=== PATIENT | female | born 1965 | race Caucasian/White ===

== ENCOUNTER 2017-12-05 03:26 | Observation (INO) | payer OTHER ==
[~2017-12-05] VITALS: Ht 162.6 cm; Wt 73.0 kg
[~2017-12-05 03:26] MED LIST: BRISDELLE7.5 M1 PO; LEVSIN-SL0.125 MG SL; MULTIVITAMINS1 EAC9 PO; NASACORT16.9 ML NASB; VALACYCLOVIR1000 MG PO; VITAMIN B-121000 MC3 PO; VITAMIN D250000 UNIT PO; ZOFRAN ODT4 M1 SL
[2017-12-05 09:20] LABS: ABSOLUTE BASOPHIL COUNT 0 /CUMM (0.0-0.2); ABSOLUTE EOSINOPHIL COUNT 0.2 /CUMM (0.0-0.7); ABSOLUTE GRANULOCYTE CT 2.1 /CUMM (1.4-6.5); ABSOLUTE LYMPH COUNT 1.8 /CUMM (1.2-3.4); ABSOLUTE MONOCYTE COUNT 0.6 /CUMM (0.10-0.60); BASOPHIL % 0.7 % (0.0-2.0); EOSINOPHIL % 4.8 % (0-5); GRANULOCYTE % 44.1 % (42.2-75.2); HEMATOCRIT 43.1 % (37-47); MEAN CORPUSCULAR HGB 29.5 PG (27.0-31.0); MEAN CORPUSCULAR HGB CONC 33.8 G/DL (33.0-37.0); MEAN CORPUSCULAR VOLUME 87.3 FL (81.0-99.0); MEAN PLATELET VOLUME 8.1 FL (7.4-10.4); PLATELET COUNT 281 /CUMM (130-400); RBC DISTRIBUTION WIDTH 13.4 % (11.5-14.5); RED BLOOD CELL CT 4.93 /CUMM (4.20-5.40); WHITE BLOOD CELL COUNT 4.8 /CUMM (4.8-10.8)
[2017-12-05 21:35] VITALS: BP 110/60
--- NOTE | 2017-12-05 22:26 | Admission Core Measures ---
Acute Coronary Syndrome (CM) ACS Core Measures Acute Coronary Syndrome Diagnosis No Congestive Heart Failure (NEW) CHF Core Measures Congestive Heart Failure Diagnosis No Cerebrovascular Accident (NEW) CVA Core Measures CVA/TIA Diagnosis No Venous Thromboembolism VTE Core Alfonzo (View Protocol) VTE Risk Factors Age>40 No Mechanical VTE Prophylaxis d/t N/A MechProphylax Ordered No VTE Pharm Prophylaxis d/t NA PharmProphylax ordered Problem List As ranked by this Provider includes Assessment & Plan 1. Hyperparathyroidism HOME MEDS Home Med List Cyanocobalamin (Vitamin B-12) 1,000 MCG TABLET 2 TAB PO DAILY SUPPLEMENT ( Reported) Ergocalciferol (Vitamin D2) (Vitamin D2) 50,000 UNIT CAPSULE 1 CAP PO Q2W SUPPLEMENT (Reported) Multiple Vitamin (Multivitamins) 1 EACH TABLET 2 TAB PO DAILY SUPPLEMENT ( Reported) Paroxetine Mesylate (Brisdelle) 7.5 MG CAPSULE 1 CAP PO QPM HOT FLASHES ( Reported) Triamcinolone Acetonide (Nasacort) 55 MCG SPRAY 1-2 SPRAY NASB DAILY PRN NASAL CONGESTION (Reported) Valacyclovir HCl (Valacyclovir) 1,000 MG TABLET 1 TAB PO DAILY ANTIVIRAL ( Reported)
--- NOTE | 2017-12-05 22:30 | PN- General Surgery ---
Subjective Subjective: Postop check: Patient comfortable, mild sore throat, no shortness of breath or difficulty breathing, able to swallow okay. Tolerating liquids, pain is controlled Objective Vital Signs and I&Os Vital Signs Date Time Temp Pulse Resp B/P B/P Pulse O2 O2 Flow FiO2 Mean Ox Delivery Rate 12/05 2134 Nasal 2.0L Cannula 12/05 2134 98.5 72 18 110/60 98 Nasal 2.0L Cannula Intake & Output 12/05 0800 12/05 0000 12/04 0812/04 0000 Intake Total Output Total Balance Patient 161 lb Weight Physical Exam: Well-developed well-nourished no apparent distress. HEENT: Atraumatic, extraocular motion intact Neck: Supple, no lymphadenopathy. Dressing clean dry and intact, trachea midline, no appreciable swelling around incision Respiratory: No respiratory distress no stridor Extremities: No edema, no calf pain Neuro: Alert and oriented x3 Psych: Mood affect normal, normal memory normal judgment. Skin: Warm and dry, no rash on exposed skin Results Last 48 Hours of Labs: Laboratory Tests 12/057 5 1915 1600 Chemistry Calcium (8.4 - 10.2 mg/dL) 10.0 Albumin (3.5 - 5.0 g/dL) 3.7 PTH Intact (18.4 - 80.1 pg/ML) 13.9 L 30.7 287.6 H 12/05 0900 Chemistry PTH Intact (18.4 - 80.1 pg/ML) 254.0 H Hematology CBC w Diff NO MAN DIFF REQ WBC (4.8 - 10.8 /CUMM) 4.8 RBC (4.20 - 5.40 /CUMM) 4.93 Hgb (12.0 - 16.0 G/DL) 14.6 Hct (37 - 47 %) 43.1 MCV (81.0 - 99.0 FL) 87.3 MCH (27.0 - 31.0 PG) 29.5 MCHC (33.0 - 37.0 G/DL) 33.8 RDW (11.5 - 14.5 %) 13.4 Plt Count (130 - 400 /CUMM) 281 MPV (7.4 - 10.4 FL) 8.1 Gran % (42.2 - 75.2 %) 44.1 Lymphocytes % (20.5 - 51.1 %) 38.6 Monocytes % (1.7 - 9.3 %) 11.8 H Eosinophils % (0 - 5 %) 4.8 Basophils % (0.0 - 2.0 %) 0.7 Absolute Granulocytes (1.4 - 6.5 /CUMM) 2.1 Absolute Lymphocytes (1.2 - 3.4 /CUMM) 1.8 Absolute Monocytes (0.10 - 0.60 /CUMM) 0.6 Absolute Eosinophils (0.0 - 0.7 /CUMM) 0.2 Absolute Basophils (0.0 - 0.2 /CUMM) 0 Assessment/Plan Assessment/Plan Postop day #0 status post parathyroidectomy 1, left side Diet as tolerated. Pain medication as needed. Ad shabbir. activity. IV fluids until tolerating adequate by mouth. Perioperative antibiotics. DVT prophylaxis with heparin starting tomorrow. Follow-up calcium and albumin every 8 hours 23 hour observation for pain medication and monitoring of labs Tracheotomy kit at the bedside Core Measures Venous Thromboembolism VTE Risk Factors Age>40 No Mechanical VTE Prophylaxis d/t N/A MechProphylax Ordered No VTE Pharm Prophylaxis d/t NA PharmProphylax ordered
[2017-12-06] VITALS: BP 106/64
[2017-12-06 02:00] VITALS: BP 92/60
[2017-12-06 04:00] VITALS: BP 90/62
--- NOTE | 2017-12-06 07:30 | PN- General Surgery ---
See Addendum Subjective Subjective: Reports sore throat. Some nausea, but tolerating clears. Going to try scrambled eggs for breakfast. Out of bed to bathroom. No dizziness. No shortness of breath. No chest pains. Voided well. Anticipates discharge to home today. Objective Vital Signs and I&Os Vital Signs Date Time Temp Pulse Resp B/P B/P Pulse O2 O2 Flow FiO2 Mean Ox Delivery Rate 12/06 0400 99.0 84 20 90/62 97 Room Air 12/06 0200 97.6 81 20 92/60 96 Room Air 12/06 0000 98.0 95 20 106/64 98 Nasal Cannula 12/05 2134 Nasal 2.0L Cannula 12/05 2134 98.5 72 18 110/60 98 Nasal 2.0L Cannula Intake & Output 12/06 0800 12/06 0000 12/05 1600 12/05 0800 12/05 0000 12/04 1600 Intake Total 960 75 Output Total 550 Balance 960 -475 Intake, IV 600 75 Intake, Oral 360 Output, Urine 550 Patient 161 lb 161 lb Weight Physical Exam: General - alert & oriented x 3. comfortable. no acute distress. Neck - dressing c/d/i. no drains. no hematoma. Lungs - clear bilaterally. no w/r/r. Cardiac - s1s2. reg. Abdomen - soft. nontender. Extremities - warm bilaterally. no c/c/e. calves soft and nontender b/l. Current Medications: Current Medications Sig/Tramaine Start time Last Medication Dose Route Stop Time Status Admin Acetaminophen 650 MG Q6P PRN 12/05 2100 AC PO Acetaminophen 1,000 MG .STK-MED ONE 12/05 1452 DC IV 12/05 1453 Cholecalciferol 1,000 IU DAILY 12/06 1000 AC PO Clindamycin 600 MG IQ8 12/06 0000 AC 12/06 Dextrose/Water 50 ML IV 12/06 0829 0038 Clindamycin 600 MG ONCE 12/05 0000 DC Dextrose/Water 50 ML IV 12/05 2359 Fentanyl Citrate 200 MCG .STK-MED ONE 12/05 1453 DC IM 12/05 1454 Heparin Sodium 5,000 UNIT Q8 12/06 0600 AC 12/06 (Porcine) SC 0537 Lactated Ringer's 1,000 ML Q13H 12/05 2100 AC 12/05 IV 2224 Midazolam HCl 2 MG .STK-MED ONE 12/05 1453 DC IM 12/05 1454 Morphine Sulfate 4 MG Q2P PRN 12/05 2100 AC 12/06 IV 0537 Multivitamins 1 TAB DAILY 12/06 1000 AC PO Ondansetron HCl 4 MG Q6P PRN 12/05 2100 AC 12/06 IV 0531 Oxycodone/ 1 TAB Q4P PRN 12/05 2100 AC Acetaminophen PO Oxycodone/ 2 TAB Q4P PRN 12/05 2100 AC Acetaminophen PO Paroxetine HCl 10 MG QPM 12/06 0130 AC 12/06 PO 0120 Promethazine HCl 12.5 MG Q6P PRN 12/05 2100 AC IV 12/12 204 Remifentanil 4 MG .STK-MED ONE 12/05 1453 DC IV 12/05 1454 Valacyclovir HCl 1,000 MG DAILY 12/06 1000 AC PO Results Last 48 Hours of Labs: Laboratory Tests 12/06 12/05 12/05 12/05 12/05 0500 2047 2045 1915 1600 Chemistry Sodium (137 - 145 mmol/L) 139 Potassium (3.5 - 5.1 mmol/L) 4.3 Chloride (98 - 107 mmol/L) 106 Carbon Dioxide (22 - 30 mmol/L) 24 Anion Gap (5 - 16) 9 BUN (7 - 17 mg/dL) 13 Creatinine (0.5 - 1.0 mg/dL) 0.6 Estimated GFR (>60 ml/min) > 60 BUN/Creatinine Ratio (7 - 25 %) 21.7 Calcium (8.4 - 10.2 mg/dL) 8.6 10.0 Albumin (3.5 - 5.0 g/dL) 3.4 L 3.7 PTH Intact (18.4 - 80.1 pg/ML) 13.9 L 30.7 287.6 H 12/05 12/05 UNK 0900 Chemistry PTH Intact (18.4 - 80.1 pg/ML) Cancelled 254.0 H Hematology CBC w Diff NO MAN DIFF REQ WBC (4.8 - 10.8 /CUMM) 4.8 RBC (4.20 - 5.40 /CUMM) 4.93 Hgb (12.0 - 16.0 G/DL) 14.6 Hct (37 - 47 %) 43.1 MCV (81.0 - 99.0 FL) 87.3 MCH (27.0 - 31.0 PG) 29.5 MCHC (33.0 - 37.0 G/DL) 33.8 RDW (11.5 - 14.5 %) 13.4 Plt Count (130 - 400 /CUMM) 281 MPV (7.4 - 10.4 FL) 8.1 Gran % (42.2 - 75.2 %) 44.1 Lymphocytes % (20.5 - 51.1 %) 38.6 Monocytes % (1.7 - 9.3 %) 11.8 H Eosinophils % (0 - 5 %) 4.8 Basophils % (0.0 - 2.0 %) 0.7 Absolute Granulocytes (1.4 - 6.5 /CUMM) 2.1 Absolute Lymphocytes (1.2 - 3.4 /CUMM) 1.8 Absolute Monocytes (0.10 - 0.60 /CUMM) 0.6 Absolute Eosinophils (0.0 - 0.7 /CUMM) 0.2 Absolute Basophils (0.0 - 0.2 /CUMM) 0 Assessment/Plan Assessment/Plan This 52 year old female is POD#1 s/p parathyroidectomy for hyperparathyroidism tolerating some clears. to try regular diet this morning pain medication as ordered zofran prn nausea oob/ambulation hep sc - dvt ppx gurmeet-op clinda x 2 f/u serial labs (calcium / albumin) observation status given anticipation of discharge today will d/w Core Measures Venous Thromboembolism VTE Risk Factors Age>40 No Mechanical VTE Prophylaxis d/t N/A MechProphylax Ordered No VTE Pharm Prophylaxis d/t NA PharmProphylax ordered
--- NOTE | 2017-12-06 07:44 | Patient Discharge Instructions ---
Discharge Instructions General Discharge Information You were seen/treated for: hyperparathyroidism You had these procedures: parathyroidectomy (12/05/17) Watch for these problems: fever>101.3, increased pain, redness/swelling/drainage, dizziness, shortness of breath, chest pains No bath, but you may shower: Yes Other wound care: ok to remove outer dressing in 24-48 hours. leave white steri strips in place. ok to shower. keep incision clean & dry. Special Instructions: Please take Calcitriol, as prescribed for 2 weeks Please take Calcium, as prescribed for 2 weeks Please take Vitamin D, as prescribed senior care Please recheck PTH, TSH, Free T3,4, calcium, albumin and vitamin D fevels on 12/08/17 Call to schedule an appointment with Dr. Hamm in 1-2 weeks or sooner with concerns, including mouth numbness/tingling, as this can indicate low calcium Call to schedule a follow up appointment in 7-[address] Durham. Diet Continue normal diet: Yes Recommended Diet: Regular Activity Full Activity/No Limits: Yes Activity Self Limited: Yes Pounds, do NOT lift more than: 10 Other activity limits: no heavy lifting. no strenuous activity. Acute Coronary Syndrome Inclusion Criteria At DC or during hospital stay patient has or had the following: ACS DIAGNOSIS No Discharge Core Measures Meds if any: Prescribed or Continued at Discharge Meds if any: NOT Prescribed or Continued at Discharge Congestive Heart Failure Inclusion Criteria At DC or during hospital stay patient has or had the following: CHF DIAGNOSIS No Discharge Core Measures Meds if any: Prescribed or Continued at Discharge Meds if any: NOT Prescribed or Continued at Discharge Cerebrovascular accident Inclusion Criteria At DC or during hospital stay patient has or had the following: CVA/TIA Diagnosis No Discharge Core Measures Meds if any: Prescribed or Continued at Discharge Meds if any: NOT Prescribed or Continued at Discharge Venous thromboembolism Inclusion Criteria VTE Diagnosis No VTE Type NONE VTE Confirmed by (Test) NONE Discharge Core Measures - Per Current guidelines, there needs to be overlap - treatment for the first 5 days of Warfarin therapy. - If discharged on Warfarin prior to 5 days of - overlap therapy, the patient will need to be - assessed for post discharge needs including - *Post discharge parental anticoagulation - *Warfarin and/or parental anticoagulation education - *Follow up date to check INR post discharge At least 5 days overlap therapy as Inpatient No Meds if any: Prescribed or Continued at Discharge Note: Overlap Therapy is Warfarin and Anticoagulant Meds if any: NOT Prescribed or Continued at Discharge
[2017-12-06] MEDS ORDERED: PERCOCET 5-3251 EACH PO (07:46)
[2017-12-06] MEDS ORDERED: VITAMIN D1000 UNIT PO (14:37)
[2017-12-06] MEDS ORDERED: CALCIUM500 M2 PO (14:37)
[2017-12-06] MEDS ORDERED: CALCITRIOL0.25 MC1 PO (14:37)
--- NOTE | 2017-12-07 15:32 | Operative Report ---
Operative/Inv Procedure Report Surgery Date: 12/05/17 Name of Procedure: parathyroidectomy (Left upper) Pre-Operative Diagnosis: primary hyperparathyroidism Post-Operative Diagnosis: same Estimated Blood Loss: scant Surgeon/Nozzle And Sleeve Worker: Marva HOLT,Catrachito KARIMI Anesthesia: general endotracheal tube Operative/Procedure Note Note: Patient was placed on the OR table supine, over the thyroid bar, after successful induction of general anesthesia and the timeouts, and setting up the NIMS electrodes for monitoring, the patient's neck from chin to chest were clipped prepped and draped in the usual sterile fashion. A PTH level was drawn at this time. We had already marked a skin crease near the cricoid in Same Day, and then infiltrated local anesthetic and then made this incision with a 15 blade, extending within the medial borders of the sternocleidomastoid muscles, but slightly off center favoring the left side. The incision was deepened through the subcutaneous fat and subplatysmal flaps, preserving the underlying anterior jugular veins, were made superiorly to the thyroid cartilage and inferiorly not quite to the sternal notch. The midline was identified between the strap muscles and opened vertically and then using an Allis clamp first, the sternohyoid and then the sternal thyroid muscles were and then retracted laterally to the right, off the thyroid towards the carotid sheath, at this point the dissection was continued using the Harmonic scalpel. At the deep mid- lateral aspect of the left lobe, we searched for the parathyroid gland/ adenoma. It took some time we re-reviewed the preoperative imaging which showed the increased signal right in the middle behind the lobe, we had to divide a small portion, medially of the sternothyroid muscle and also mobilize the upper pole off of some of its vessels, we checked the tracheoesophageal groove, we identified the left lower gland which was in its usual position just inferolateral to the lower pole. The fascia covering the posterior aspect of the lobe was thick it seemed like it was the thyroid capsule but I cut into it and gently enlarged that opening and then you could see that the thyroid gland in this middle area was indented and in the indentation was a flattened enlarged parathyroid gland with its blood supply coming from above, this adenoma was more adherent to the thyroid gland and located a little more inferiorly than usual but we were able to isolate it in one piece then drawn parathyroid hormone level which was 290 and we excised the adenoma waited 10 minutes omero venous blood again it had dropped to 30. At this point And it was over an 80% drop I felt we were finished. The recurrent nerve was running a little deeper and more medial to the dissection. So we checked for hemostasis and then closed by first reapproximating the strap muscles over the trachea in the middle paying care not to injure those jugular veins on either side, and then the platysma was reapproximated with a running 3-0 Vicryl suture as well, then the skin was reapproximated with a running subcuticular 4-0 Biosyn suture followed by Mastisol Steri-Strips Telfa and Tegaderm. Estimated blood loss was minimal lap and sponge counts were correct wound expectancy was clean, IV fluids crystalloid , complications none, patient tolerated the procedure well was awakened extubated and returned to the recovery room in satisfactory condition where once more awake, was able to phonate without any significant hoarseness.
== END 2017-12-06 15:30 ==
LOC: STS 03:26 → EDSTATUS 07:00 → STS 07:00 → PACUH 14:59 → ENRESERV 20:45 → ENTRNSPT 21:14 → EDTRNSPTSTS 21:28 → EDTRNSPT 21:28 → 2NA 21:33 → CMPTRNSPT 21:48 → ENPENDDIS 12-06 08:13 → 2NA 12-06 15:30
PROVIDERS: Surgery
DX: E21.0 Primary hyperparathyroidism (principal); Z87.442 Personal history of urinary calculi; D64.9 Anemia, unspecified; F41.9 Anxiety disorder, unspecified; F32.9 Major depressive disorder, single episode, unspecified
CPT/HCPCS: 6030; 36415; 36592; 82436; 88305; 93005; 93010; 96372; 96374; 96375; G0378; J0131; J1644; J2405; J3490